=== PATIENT | female | born 1985 | race Caucasian/White ===

== ENCOUNTER 2016-12-02 15:37 | Outpatient (CLI) | payer BC ==
[~2016-12-02] VITALS: Ht 157.5 cm; Wt 478.5 kg
[~2016-12-02 15:37] MED LIST: PRENAT PO
[2016-12-02 15:46] VITALS: Ht 157.5 cm; Wt 478.5 kg
[2016-12-02 15:47] VITALS: BP 112/72; PULSE 78; RESP 19
--- NOTE | 2016-12-02 16:34 | RADRPT ---
PROCEDURE: Biophysical profile CLINICAL INDICATION: distress, vaginal spotting TECHNIQUE: Color and lowe-scale ultrasound images of an intrauterine gestation were obtained. COMPARISON: None FINDINGS: A single live intrauterine gestation is identified in cephalic position with an estimated hear t rate of 134 beats per minute. The placenta is located anteriorly. The cervix is obscured by head shadows. No evidence of abruption identified. MAIRA is 15.6 cm. movement 2/2. tone 2/2. breathing movement 2/2. Qualitative AFV 2/2 Total biophysical profile 03/29 IMPRESSION: 03/29 biophysical profile. RPTAT: AA .Mik Cooper MD, Date Time Electronically viewed and signed by .Mik Cooper MD, on 12/02/2016 16:34 .P/
--- NOTE | 2016-12-02 17:17 | CONS ---
Date/Time of Note Date/Time of Note DATE: 12/02/16 TIME: 17:06 Consultation Date/Type/Reason Admit Date/Time December 02, 2069 OB triage consult Reason for Consultation This patient is a 1 para 0 due date of January 17, 2017 which makes her 33 weeks and 2 days today She came to triage area complaining of vaginal discharge which was brownish and was concerned about the possible vaginal bleeding . In reviewing her history she did not have any surgery any other major medical problem in her past she is taking her vitamins and iron pills during this no history of allergy On examination her vital signs are normal blood pressure 112/72 pulse 78 respiration 19 and temperature 98.0 plus heart tones are 140s with fairly good variability no deceleration occasional acceleration On physical examination her ear nose throat appears to be normal neck is normal no neck vein distention no thyromegaly no lymph node enlargement anywhere in her body Chest is clear to auscultation and percussion Heart normal sinus rhythm no murmur Abdomen is soft fundus is firm baby appears to be in vertex presentation No CVA tenderness Extremity; no edema no varicosities knee-jerk reflex normal . Pelvic exam: Cervix is closed long and there is no evidence of vaginal bleeding On ultrasound study a single live intrauterine gestation identified with cephalic presentation heart rate of 134 placenta located anteriorly no evidence of abruptio , her MAIRA was 15.6 cm her biophysical profile was reported Constitutional: No chills, No diaphoresis, No disoriented, No febrile, No improved, No no complaints, No other, No poor po, No requiring IVF, No requiring O2 Eyes: No discharge, No no complaints, No other, No pain, No redness, No visual change ENT: No bleeding, No congestion, No discharge, No dysphagia, No no complaints, No other, No pain, No sore throat Respiratory: No cough, No no complaints, No other, No pain, No pleuritic pain, No shortness of breath, No sputum, No wheezing Cardiovascular: No chest pain, No edema, No lightheadedness, No no complaints, No orthopenea, No other, No palpitations, No paroxysmal nocturnal dyspnea Gastrointestinal: No blood, No constipation, No decreased appetite, No diarrhea , No flatus, No nausea, No no complaints, No other, No pain, No passing stool, No vomiting Genitourinary: other (Slight brown vaginal discharge no evidence of reading the cervix was long and closed as I mentioned), No bleeding, No discharge, No dysuria, No flank pain, No hematuria, No no complaints Musculoskeletal: No back pain, No bone/joint pain, No neck pain, No no complaints, No other, No restricted range of motion, No swelling Skin: No bruising, No erythema, No laceration, No no complaints, No other, No pruritis, No rash, No skin lesions Neurologic: other (Knee-jerk reflex were normal), No confusion, No dizziness, No focal-weakness, No headache, No no complaints , No seizure, No syncope Endocrine: No dry skin, No no complaints, No other, No polydypsia, No polyuria , No temp intolerance Additional Comments Disposition : with these positive finding patient was reassured and she will continue her care with her measurement specialist End of dictation Social History Smoking Status: Never smoker Exam/Review of Systems Vital Signs Vitals Vital Signs Date Time Temp Pulse Resp B/P Pulse Ox O2 Delivery O2 Flow Rate FiO2 12/02/16 15:47 98.8 78 19 112/72 Room Air RIC URRUTIA MD Dec 02, 2016 17:17
--- NOTE | 2016-12-02 17:17 | TRIAGE ---
OB Triage Datetime Report Generated by CPN: 12/02/2016 17:17 Datetime: 12/02/2016 17:15 Stage of : OB Triage Maternal Assessment Level of Consciousness: Fully Conscious DTR's/Clonus: DTRs 1+ Headache: Denies Breath Sounds, Left: Clear and Equal Breath Sounds, Right: Clear and Equal Nausea/Vomiting: Denies RUQ Epigastric Pain: Denies Labor Evaluation Frequency: NONE Monitor Mode: External Quality: Mild Resting Tone [place]: Relaxed Heart Rate FHR Baseline Rate: 140 Monitor Mode: External US Variability: Moderate 6-25 bpm Accelerations: 15X15 Decelerations: None Category: Category I Pain Assessment Pain Presence: None/Denies Pain Type: N/A Membrane Status: Intact Datetime: 12/02/2016 17:05 Vaginal Exam Dilatation (cms): 1.0 Effacement (%): 0 Station: 0 Exam By: RRAMILILIANA,RN Vaginal Bleeding: None Cervix, Consistency: Moderate Cervix, Position: Posterior Datetime: 12/02/2016 16:49 Stage of : OB Triage Maternal Assessment Level of Consciousness: Fully Conscious DTR's/Clonus: DTRs 1+ Headache: Denies Breath Sounds, Left: Clear and Equal Breath Sounds, Right: Clear and Equal Nausea/Vomiting: Denies RUQ Epigastric Pain: Denies Labor Evaluation Frequency: NONE Quality: Mild Resting Tone [place]: Relaxed Heart Rate FHR Baseline Rate: 140 Monitor Mode: External US Variability: Moderate 6-25 bpm Accelerations: 15X15 Decelerations: None Category: Category I Pain Assessment Pain Presence: None/Denies Pain Type: N/A Membrane Status: Intact Datetime: 12/02/2016 16:18 Maternal Assessment Level of Consciousness: Fully Conscious DTR's/Clonus: DTRs 1+ Headache: Denies Blurred Vision: No Respiratory Effort: Unlabored Breath Sounds, Left: Clear and Equal Breath Sounds, Right: Clear and Equal Nausea/Vomiting: Denies RUQ Epigastric Pain: Denies Facial Edema: None Labor Evaluation Frequency: NONE Quality: Mild Resting Tone [place]: Relaxed Heart Rate FHR Baseline Rate: 140 Monitor Mode: External US Variability: Moderate 6-25 bpm Accelerations: 15X15 Decelerations: None Category: Category I Pain Assessment Pain Presence: None/Denies Pain Type: N/A Membrane Status: Intact Datetime: 12/02/2016 16:00 Stage of : OB Triage Maternal Assessment Level of Consciousness: Fully Conscious DTR's/Clonus: DTRs 1+ Headache: Denies Breath Sounds, Left: Clear and Equal Breath Sounds, Right: Clear and Equal Nausea/Vomiting: Denies RUQ Epigastric Pain: Denies Labor Evaluation Frequency: NONE Quality: Mild Resting Tone [place]: Relaxed Heart Rate FHR Baseline Rate: 140 Monitor Mode: External US Variability: Moderate 6-25 bpm Accelerations: 15X15 Decelerations: None Pain Assessment Pain Presence: None/Denies Pain Type: N/A Membrane Status: Intact Datetime: 12/02/2016 15:50 EGA: 33.3 Datetime: 12/02/2016 15:45 Assessment Type: Admission Assessment Maternal Assessment Level of Consciousness: Fully Conscious DTR's/Clonus: DTRs 2+; No Clonus Headache: Denies Blurred Vision: No Respiratory Effort: Unlabored; Regular Rhythm; Equal Expansion Breath Sounds, Left: Clear and Equal Breath Sounds, Right: Clear and Equal Nausea/Vomiting: Denies RUQ Epigastric Pain: Denies Lower Extremities Edema: None Degree: None Upper Extremities Edema: None Degree: None Facial Edema: None Fall Risk Assessment History of Falling: (0) No Secondary Diagnosis: (0) No Ambulatory Aid: (0) Bedrest/Nurse Assist IV Therapy: (0) No Gait: (0) Normal/Bedrest/Immobile Mental Status: (0) Oriented to Own Ability Fall Score: 0 Fall Risk Score Definition: No Risk: No action required Datetime: 12/02/2016 15:30 Time of Arrival: 12/02/2016 15:30 Arrived By: Ambulatory Arrived From: Home Chief Complaint: PT CAME IN C/O SPOTTING DARK BLOOD X 1 TODAY, STATES + FM AND DENIES ANY OTHER UT OBLEM Movement: Present Contractions: Denies/Absent Rupture of Membranes: Denies Vaginal Bleeding: None Vaginal Discharge: Denies Recent Sexual Intercouse: Denies Abdominal Trauma: Not Applicable Patient Complaints: Other Additional Patient Complaints: NONE Time Provider Notified: 12/02/2016 15:45 Provider Notified: RENAN Initial Plan: NST AND BPP [facility] LOCATION
== END 2016-12-02 17:17 | disposition home or self-care (01) ==
LOC: OBT 15:37 → L-D 15:37 → OBT 17:17
DX: O26.892 Other specified pregnancy related conditions, second trimester (principal); N89.8 Other specified noninflammatory disorders of vagina; Z3A.33 33 weeks gestation of pregnancy
CPT/HCPCS: 76818; G0463

== ENCOUNTER 2016-12-08 16:08 | Outpatient (CLI) | payer BC ==
--- NOTE | 2016-12-08 17:01 | RADRPT ---
PROCEDURE: US OB biophysical profile. Ultrasound cervix CLINICAL INDICATION: decreased movements, vaginal spotting TECHNIQUE: Multiple sonographic images of the pelvis were obtained. The images were reviewed on a PACS workstation. In addition transvaginal images of the cervix were obtained. COMPARISON: 12/02/2016 FINDINGS: The cervix is closed and measures 2.9 cm in length. There is a single viable intrauterine gestation. Cardiac activity is present with 144 beats per min [place]. There is a vertex presentation. The placenta is anterior. There is no evidence of placental abruption. There is a slightly decreased amount of amniotic fluid with an MAIRA = 7.2 cm. Biophysical profile: movement 2/2 tone 2/2. breathing 2/2 MAIRA 2/2 Total 03/29 RPTAT: AA . IMPRESSION: Normal biophysical profile. Mild oligohydramnios. Cervix length measures 2.9 cm. . .Lon Jefferson MD, MD Date Time Electronically viewed and signed by .Lon Jefferson MD, MD on 12/08/2016 17:01 .S/
[2016-12-08 18:58] LABS: URINE BLOOD (Dip) POC 2+ (NEGATIVE)
--- NOTE | 2016-12-08 19:05 | TRIAGE ---
OB Triage Datetime Report Generated by CPN: 12/08/2016 19:05 Datetime: 12/08/2016 18:50 Stage of : OB Triage Maternal Assessment Level of Consciousness: Fully Conscious DTR's/Clonus: DTRs 1+ Headache: Denies Breath Sounds, Left: Clear and Equal Breath Sounds, Right: Clear and Equal Nausea/Vomiting: Denies RUQ Epigastric Pain: Denies Labor Evaluation Frequency: NONE Monitor Mode: External Resting Tone [place]: Relaxed Heart Rate FHR Baseline Rate: 130 Monitor Mode: External US Variability: Moderate 6-25 bpm Accelerations: 15X15 Decelerations: None Category: Category I Pain Assessment Pain Scale: 0 Pain Presence: None/Denies Pain Type: N/A Pain Goal: 3 Vaginal Exam Membrane Status: Intact Datetime: 12/08/2016 18:09 Stage of : OB Triage Datetime: 12/08/2016 18:03 Stage of : OB Triage Datetime: 12/08/2016 18:00 Stage of : OB Triage Maternal Assessment Level of Consciousness: Fully Conscious DTR's/Clonus: DTRs 1+ Headache: Denies Breath Sounds, Left: Clear and Equal Breath Sounds, Right: Clear and Equal Nausea/Vomiting: Denies RUQ Epigastric Pain: Denies Labor Evaluation Frequency: NONE Monitor Mode: External Resting Tone [place]: Relaxed Heart Rate FHR Baseline Rate: 130 Monitor Mode: External US Variability: Moderate 6-25 bpm Accelerations: 15X15 Decelerations: None Category: Category I Pain Assessment Pain Scale: 0 Pain Presence: None/Denies Pain Type: N/A Pain Goal: 3 Vaginal Exam Membrane Status: Intact Datetime: 12/08/2016 17:40 Stage of : OB Triage Maternal Assessment Level of Consciousness: Fully Conscious DTR's/Clonus: DTRs 1+ Headache: Denies Breath Sounds, Left: Clear and Equal Breath Sounds, Right: Clear and Equal Nausea/Vomiting: Denies RUQ Epigastric Pain: Denies Labor Evaluation Frequency: NONE Monitor Mode: External Resting Tone [place]: Relaxed Heart Rate FHR Baseline Rate: 130 Monitor Mode: External US Variability: Moderate 6-25 bpm Accelerations: 15X15 Decelerations: None Category: Category I Pain Assessment Pain Scale: 0 Pain Presence: None/Denies Pain Type: N/A Pain Goal: 3 Vaginal Exam Membrane Status: Intact Datetime: 12/08/2016 16:39 Maternal Assessment Level of Consciousness: Fully Conscious DTR's/Clonus: DTRs 1+ Headache: Denies Blurred Vision: No Respiratory Effort: Unlabored Breath Sounds, Left: Clear and Equal Breath Sounds, Right: Clear and Equal Nausea/Vomiting: Denies RUQ Epigastric Pain: Denies Facial Edema: None Labor Evaluation Frequency: NONE Monitor Mode: External Resting Tone [place]: Relaxed Heart Rate FHR Baseline Rate: 130 Monitor Mode: External US Variability: Moderate 6-25 bpm Accelerations: 15X15 Decelerations: None Category: Category I Pain Assessment Pain Scale: 0 Pain Presence: None/Denies Pain Type: N/A Pain Goal: 3 Vaginal Exam Membrane Status: Intact Datetime: 12/08/2016 16:13 Assessment Type: Triage Maternal Assessment Level of Consciousness: Fully Conscious DTR's/Clonus: DTRs 2+; No Clonus Headache: Denies Blurred Vision: No Respiratory Effort: Unlabored; Regular Rhythm; Equal Expansion Breath Sounds, Left: Clear and Equal Breath Sounds, Right: Clear and Equal Nausea/Vomiting: Denies RUQ Epigastric Pain: Denies Lower Extremities Edema: None Degree: None Upper Extremities Edema: None Degree: None Facial Edema: None Fall Risk Assessment History of Falling: (0) No Secondary Diagnosis: (0) No Ambulatory Aid: (0) Bedrest/Nurse Assist IV Therapy: (0) No Gait: (0) Normal/Bedrest/Immobile Mental Status: (0) Oriented to Own Ability Fall Score: 0 Fall Risk Score Definition: No Risk: No action required Datetime: 12/08/2016 16:05 Time of Arrival: 12/08/2016 16:05 EGA: 34.2 Arrived By: Wheelchair Arrived From: Home Chief Complaint: PT CAME IN C/O SPOTTING SINCE THIS MORNING. DENIES ANY COMPLICATION AT THIS TIME AND STATES HAVING MOVEMENT Movement: Present Contractions: Denies/Absent Rupture of Membranes: Denies Vaginal Discharge: Denies Recent Sexual Intercouse: Denies Abdominal Trauma: Not Applicable Patient Complaints: Other Additional Patient Complaints: NONE Time Provider Notified: 12/08/2016 19:00 Provider Notified: KATE Initial Plan: NST AND BPP [facility] LOCATION, CX LENGHT Datetime: 12/02/2016 15:50 EGA: 33.3 Datetime: 12/02/2016 15:45 Fall Score: 0 Fall Risk Score Definition: No Risk: No action required
--- NOTE | 2016-12-08 22:26 | QN ---
Documentation Comment 31-year-old with IUP at 34 weeks and 2 days presented with complaint of spotting. She denies any contractions, leaking of fluid, vaginal bleeding. She presented last week as well with spotting that resolved. She is O+. She denies any complications during her course. 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 Patient currently beside spotting that currently resolved denies any other complaints. Physical examination: General appearance: Alert and oriented 4 patient does not appear to be in any acute distress. Abdomen: Soft, gravid, nontender, fundal height consistent with gestational age No spotting or bleeding noted during observation. Transvaginal cervical length 2.9 cm BPP: 03/29 MAIRA: 7 PROCEDURE: US OB biophysical profile. Ultrasound cervix CLINICAL INDICATION: decreased movements, vaginal spotting TECHNIQUE: Multiple sonographic images of the pelvis were obtained. The images were reviewed on a PACS workstation. In addition transvaginal images of the cervix were obtained. COMPARISON: 12/02/2016 FINDINGS: The cervix is closed and measures 2.9 cm in length. There is a single viable intrauterine gestation. Cardiac activity is present with 144 beats per minute. There is a vertex presentation. The placenta is anterior. There is no evidence of placental abruption. There is a slightly decreased amount of amniotic fluid with an MAIRA = 7.2 cm. Biophysical profile: movement 2/2 tone 2/2. breathing 2/2 MAIRA 2/2 Total 03/29 RPTAT: AA . IMPRESSION: Normal biophysical profile. Mild oligohydramnios. Cervix length measures 2.9 cm. . Assessment: IUP at 34 weeks and 2 days Spotting, O + positive, resolved. During observation no contraction seen on the monitor. Patient denies any symptom. Cervical length: 2.9 MAIRA: 7 Patient will be discharged home with strict labor precaution, bedrest and pelvic rest with a follow-up in 48 hours again in triage for repeat cervical length as well as MAIRA after adequate p.o. hydration She was given strict labor precaution and kick count. She was advised to return immediately to the hospital if she feels any cramps, leaking of fluid, bleeding or any other concern. Patient sounds understanding and desire to comply. Follow-up next week with her OB clinic advised STORM LOVE MD Dec 08, 2016 22:26
== END 2016-12-08 19:00 | disposition home or self-care (01) ==
LOC: OBT 16:08 → L-D 16:09 → OBT 19:00
PROVIDERS: ATTEND Obstetrics & Gynecology Obstetrics
DX: O26.853 Spotting complicating pregnancy, third trimester (principal); O36.8130 Decreased fetal movements, third trimester, not applicable or unspecified; Z3A.34 34 weeks gestation of pregnancy
CPT/HCPCS: 76817; 76818; 81003; 86850; 86900; 86901; G0463

== ENCOUNTER 2017-12-07 22:46 | Emergency (ER) | END 2017-12-07 23:55 | disposition left against medical advice (07) ==

== ENCOUNTER 2017-12-08 10:19 | Emergency (ER) | END 2017-12-08 15:34 | disposition home or self-care (01) ==

== ENCOUNTER 2018-04-25 08:36 | Emergency (ER) | END 2018-04-25 09:46 | disposition home or self-care (01) ==

== ENCOUNTER 2018-08-20 23:31 | Emergency (ER) | payer BC ==
[~2018-08-20] VITALS: Ht 157.5 cm; Wt 81.5 kg
[~2018-08-20 23:31] MED LIST changes: +ACET500C5 PO; +HYDR-4011 PO; +IBUP800T48 PO; +NAPR-985 PO; +ONDA4TAB8 PO; +SULF1TAB31 PO
[2018-08-20 23:33] VITALS: BP 123/80; PULSE 77; RESP 18; Ht 157.5 cm; Wt 81.5 kg
[2018-08-21] MEDS ORDERED: KETOROLAC 30 MG INJ IM STA (00:01)
[2018-08-21] MEDS ORDERED: NAPR-688 PO (00:27)
--- NOTE | 2018-08-21 01:49 | ERD ---
ER Documentation Chief Complaint Chief Complaint right upper arm pain x 2 months, denies trauma HPI 33-year female presents for right upper arm pain times 2 months. She states that she was here in the ER about a month ago and an x-ray which showed tendinitis. She is here for the same symptoms. 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 She was given Naprosyn in the ER a month ago which helps with her symptoms. She states that she currently has 10 out of 10 pain. The pain is described as sharp. Denies any fevers or chills. No chest pain or shortness of breath noted. ROS All systems reviewed and are negative except as per history of present illness. Medications Home Meds Active Scripts Naproxen* (Naproxen*) 500 Mg Tablet, 500 MG PO BID PRN for PAIN, #30 TAB Prov:MATT RODRIGUEZ DO 08/21/18 Hydrocodone/Acetaminophen (Sullivan 5-325 Tablet) 1 Each Tablet, 1 TAB PO Q6H PRN for PAIN, #7 TAB Prov:SUGAR CH PA-C 04/25/18 Naproxen* (Naprosyn*) 500 Mg Tablet, 500 MG PO BID PRN for PAIN AND/OR INFLAMMATION, #30 TAB Prov:SUGAR CH PA-C 04/25/18 Acetaminophen* (Tylophen*) 500 Mg Capsule, 1 CAP PO Q6H PRN for PAIN AND OR ELEVATED TEMP, #20 CAP Prov:MARIIA FINLEY 12/08/17 Ondansetron Hcl* (Zofran*) 4 Mg Tablet, 4 MG PO Q8H PRN for NAUSEA AND/OR VOMITING, #30 TAB Prov:MARIIA FINLEY 12/08/17 Ibuprofen* (Motrin*) 800 Mg Tab, 800 MG PO Q6H PRN for PAIN AND OR ELEVATED TEMP, #30 TAB Prov:MARIIA FINLEY 12/08/17 Sulfamethoxazole/Trimethoprim* (Bactrim Ds* Tablet) 1 Each Tablet, 1 TAB PO BID for 7 Days, #14 TAB Prov:MARIIA FINLEY 12/08/17 Reported Medications Multivit/Min/Fol Ac/Iron/Pren* ( S*) 1 Tab Tab, 1 TAB PO DAILY, TAB 05/24/16 Allergies Allergies: Coded Allergies: No Known Allergy (Unverified , 08/20/18) PMhx/Soc Medical and Surgical Hx: pt denies Medical Hx History of Surgery: Yes () Anesthesia Reaction: No Hx Neurological Disorder: No Hx Respiratory Disorders: No Hx Cardiac Disorders: No Hx Psychiatric Problems: No Hx Miscellaneous Medical Probl: No Hx Alcohol Use: No Hx Substance Use: No Hx Tobacco Use: No Smoking Status: Never smoker Physical Exam Vitals Vital Signs Date Temp Pulse Resp B/P (MAP) Pulse Ox O2 O2 Flow FiO2 Time Delivery Rate 08/20/18 97.9 77 18 123/80 98 23:33 (94) Physical Exam Const: No acute distress Resp: Clear to auscultation bilaterally Cardio: Regular rate and rhythm, no murmurs. right radial pulse intact Abd: Soft, non tender, non distended. Normal bowel sounds Skin: No petechiae or rashes Back: No midline or flank tenderness Ext: right upper area tenderness to palpation over the biceps muscle, no right shoulder or elbow joint tenderness Neur: Awake and alert. Right upper extremity sensation intact Psych: Normal Mood and Affect Results 24 hrs Laboratory Tests Test 08/21/18 00:11 POC Beta HCG, Qualitative NEGATIVE Current Medications Medications Dose Sig/Scarlett Start Time Status Last (Trade) Ordered Route PRN Stop Time Admin Dose Reason Admin Ketorolac 30 mg ONCE STAT 08/21/18 DC 08/21/18 Tromethamine IM 00:01 00:17 (Toradol) 08/21/18 00:02 Procedures/MDM Medical Decision Making: Differential diagnosis includes but not limited to tendinitis, muscle strain, muscle tear. Patient appeared well on physical examination. There was tenderness to palpation over the right bicep muscle. Review of records show that the patient had an x-ray done a month ago when she was here in the ER which showed tendinitis. Given that the current pain is similar to the one she had a month ago patient likely has an exacerbation of the tendinitis. Patient was given Toradol in the ER with relief of symptoms. Patient given prescription for Naprosyn. She is also advised to take [id number] Tylenol. Patient advised to use warm or cool compresses. She is advised that she may need physical therapy which she can get a referral from her primary care physician. Patient advised to follow up with PCP in 1-2 days. Patient advised to return to ED for new or worsening symptoms. Patient stable on discharge from the ED. Disclaimer: Inadvertent spelling and grammatical errors are likely due to EHR/dictation software use and do not reflect on the overall quality of patient care. Also, please note that the electronic time recorded on this note does not necessarily reflect the actual time of the patient encounter. Departure Diagnosis: Primary Impression: Tendonitis Condition: Fair Patient Instructions: Tendonitis Referrals: [facility] YOU HAVE RECEIVED A MEDICAL SCREENING EXAM AND THE RESULTS INDICATE THAT YOU DO NOT HAVE A CONDITION THAT REQUIRES URGENT TREATMENT IN THE EMERGENCY DEPARTMENT. FURTHER EVALUATION AND TREATMENT OF YOUR CONDITION CAN WAIT UNTIL YOU ARE SEEN IN YOUR DOCTORS OFFICE WITHIN THE NEXT 1-2 DAYS. IT IS YOUR RESPONSIBILITY TO MAKE AN APPOINTMENT FOR FOLOW-UP CARE. IF YOU HAVE A PRIMARY DOCTOR --you should call your primary doctor and schedule an appointment IF YOU DO NOT HAVE A PRIMARY DOCTOR YOU CAN CALL OUR PHYSICIAN REFERRAL HOTLINE AT IF YOU CAN NOT AFFORD TO SEE A PHYSICIAN YOU CAN CHOSE FROM THE FOLLOWING CO [facility] [id number] [facility]. [facility] [address] [facility] [facility] [address] [facility] [facility] [address] [facility]. [facility] [address] [facility]. [facility]. [address] Additional Instructions: Llame al doctor MAANA y urth david RADHA PARA DENTRO DE 1-2 SADLER.Dgale a la secretaria que nosotros le instruimos hacer esta radha.Avise o llame si chris condicin se empeora antes de la radha. Regresa aqui si peor o no mejor. MATT RODRIGUEZ DO Aug 21, 2018 01:49
== END 2018-08-21 00:41 | disposition home or self-care (01) ==
LOC: FTE 23:31
DX: M77.9 Enthesopathy, unspecified (principal)
CPT/HCPCS: 81025; 96372; 99284; J1885

== ENCOUNTER 2018-10-27 07:37 | Emergency (ER) | payer BC ==
[~2018-10-27] VITALS: Wt 71.0 kg
[~2018-10-27 07:37] MED LIST changes: +NAPR-688 PO
--- NOTE | 2018-10-27 09:22 | ERD ---
ER Documentation Chief Complaint Chief Complaint VOMITING SINCE LAST NIGHT WITH BACK PAIN HPI 33-year-old female, previously healthy, presents to the emergency department, complaining of acute onset of nausea, and vomiting x3 since last night, associated with intense dull epigastric pain radiating to the back, 05/01, associated with chills and general malaise. The patient denies history of previous episodes, no history of abdominal surgeries. ROS All systems reviewed and are negative except as per history of present illness. Medications Home Meds Active Scripts Naproxen* (Naproxen*) 500 Mg Tablet, 500 MG PO BID PRN for PAIN, #30 TAB Prov:MATT RODRIGUEZ DO 08/21/18 Hydrocodone/Acetaminophen ([place] 5-325 Tablet) 1 Each Tablet, 1 TAB PO Q6H PRN for PAIN, #7 TAB Prov:SUGAR CH PA-C 04/25/18 Naproxen* (Naprosyn*) 500 Mg Tablet, 500 MG PO BID PRN for PAIN AND/OR INFLAMMATION, #30 TAB Prov:SUGAR CH PA-C 04/25/18 Acetaminophen* (Tylophen*) 500 Mg Capsule, 1 CAP PO Q6H PRN for PAIN AND OR ELEVATED TEMP, #20 CAP Prov:MARIIA FINLEY 12/08/17 Ondansetron Hcl* (Zofran*) 4 Mg Tablet, 4 MG PO Q8H PRN for NAUSEA AND/OR VOMITING, #30 TAB Prov:MARIIA FINLEY 12/08/17 Ibuprofen* (Motrin*) 800 Mg Tab, 800 MG PO Q6H PRN for PAIN AND OR ELEVATED TEMP, #30 TAB Prov:MARIIA FINLEY 12/08/17 Sulfamethoxazole/Trimethoprim* (Bactrim Ds* Tablet) 1 Each Tablet, 1 TAB PO BID for 7 Days, #14 TAB Prov:MARIIA FINLEY 12/08/17 Reported Medications Multivit/Min/Fol Ac/Iron/Pren* ( S*) 1 Tab Tab, 1 TAB PO DAILY, TAB 05/24/16 Allergies Allergies: Coded Allergies: No Known Allergy (Unverified , 08/20/18) PMhx/Soc History of Surgery: Yes () Anesthesia Reaction: No Hx Neurological Disorder: No Hx Respiratory Disorders: No Hx Cardiac Disorders: No Hx Psychiatric Problems: No Hx Miscellaneous Medical Probl: No Hx Alcohol Use: No Hx Substance Use: No Hx Tobacco Use: No Smoking Status: Never smoker FmHx Family History: No diabetes, No coronary disease Physical Exam Vitals Vital Signs Date Temp Pulse Resp B/P (MAP) Pulse Ox O2 O2 Flow FiO2 Time Delivery Rate 10/27/18 98.9 90 18 115/71 99 07:40 (86) Physical Exam Patient alert, in distress due to pain, oriented, vital signs stable. HEENT: Normocephalic, atraumatic. EYES: PERRLA, EOMI, Sclera and conjunctiva appear normal. EARS: Canals clear, tympanic membranes WNL. THROAT: Normal oropharynx. NECK: Supple, No lymphadenopathy. Full ROM without pain or tenderness. HEART: RRR, no rubs, murmurs, clicks or gallops. LUNGS: Clear to auscultation. ABDOMEN: Guarded, tender to palpation in the epigastric area,? Turner sign, without masses or hepatosplenomegaly. EXTREMITIES: No edema bilaterally. BACK: Full ROM, no deformity, normal back exam NEURO: Cranial nerves grossly intact, no motor or sensory deficit Result Diagram: 10/27/18 0950 10/27/18 0950 Results 24 hrs Laboratory Tests Test 10/27/18 09:27 10/27/18 09:44 10/27/18 09:50 Urine Color YELLOW Urine Clarity SLIGHTLY CLOUDY Urine pH 6.0 Urine Specific [place] 1.026 Urine Ketones TRACE mg/dL Urine Nitrite NEGATIVE mg/dL Urine Bilirubin NEGATIVE mg/dL Urine Urobilinogen NEGATIVE mg/dL Urine Leukocyte Esterase 3+ Ranjeet/ul Urine Microscopic RBC 29 /HPF Urine Microscopic WBC 31 /HPF Urine Squamous Epithelial Cells FEW /HPF Urine Bacteria FEW /HPF Urine Mucus FEW /HPF Urine Hemoglobin 2+ mg/dL Urine Glucose 1+ mg/dL Urine Total Protein NEGATIVE mg/dl POC Beta HCG, Qualitative NEGATIVE White Blood Count 13.8 10^3/ul Red Blood Count 4.73 10^6/ul Hemoglobin 14.0 g/dl Hematocrit 42.0 % Mean Corpuscular Volume 88.8 fl Mean Corpuscular Hemoglobin 29.6 pg Mean Corpuscular 33.3 g/dl Hemoglobin Concent Red Cell Distribution Width 11.8 % Platelet Count 262 10^3/UL Mean Platelet Volume 10.2 fl Immature Granulocytes % 0.400 % Neutrophils % 89.2 % Lymphocytes % 7.3 % Monocytes % 2.9 % Eosinophils % 0.0 % Basophils % 0.2 % Nucleated Red Blood Cells % 0.0 /100WBC Immature Granulocytes # 0.060 10^3/ul Neutrophils # 12.3 10^3/ul Lymphocytes # 1.0 10^3/ul Monocytes # 0.4 10^3/ul Eosinophils # 0.0 10^3/ul Basophils # 0.0 10^3/ul Nucleated Red Blood Cells # 0.0 10^3/ul Sodium Level 141 mmol/L Potassium Level 4.0 mmol/L Chloride Level 100 mmol/L Carbon Dioxide Level 28 mmol/L Anion Gap 13 Blood Urea Nitrogen 9 mg/dl Creatinine 0.46 mg/dl Est Glomerular Filtrat > 60 mL/min Rate mL/min Glucose Level 152 mg/dl Calcium Level 9.3 mg/dl Total Bilirubin 0.3 mg/dl Direct Bilirubin 0.00 mg/dl Indirect Bilirubin 0.3 mg/dl Aspartate Amino Transf (AST/SGOT) 31 IU/L Alanine 33 IU/L Aminotransferase (ALT/SGPT) Alkaline Phosphatase 127 IU/L Total Protein 8.8 g/dl Albumin 4.6 g/dl Globulin 4.20 g/dl Albumin/Globulin Ratio 1.09 Lipase 99 U/L Current Medications Medications Dose Sig/Scarlett Start Time Status Last (Trade) Ordered Route PRN Stop Time Admin Dose Reason Admin Lactated 1,000 ml @ Q1H STAT 10/27/18 DC 10/27/18 Ringer's 1,000 mls/hr IV 09:26 10/27/18 09:54 10:25 Morphine 2 mg ONCE STAT 10/27/18 DC 10/27/18 Sulfate IV 09:26 10/27/18 09:53 (morphine) 09:29 Ondansetron 4 mg ONCE STAT 10/27/18 DC 10/27/18 HCl (Zofran IV 09:26 10/27/18 09:53 Inj) 09:29 Famotidine 20 mg ONCE STAT 10/27/18 DC 10/27/18 (Pepcid Iv) IV 09:26 10/27/18 09:53 09:29 Ceftriaxone 50 ml @ ONCE ONCE 10/27/18 DC 10/27/18 Sodium 100 mls/hr IVPB 10:30 10/27/18 10:23 10:59 Ketorolac 30 mg ONCE STAT 10/27/18 DC 10/27/18 Tromethamine IV 10:58 10/27/18 11:08 (Toradol) 10:59 Procedures/MDM Vital signs stable. Differential diagnosis include but not limited to: UTI, colitis, gastroenteritis, kidney stones, irritable bowel syndrome, inflammatory bowel syndrome, malabsorption syndrome, cholelithiasis, food intolerance, medication side effect, pancreatitis, diverticulitis, bowel obstruction. Physical examination and clinical presentation consistent most likely with UTI. During the ED course the patient remained stable, no new complaints. The patient received treatment with IV fluids and IV medications presenting overall impro vement of the symptoms. Results and clinical impression discussed with the patient who agrees with m anagement. The patient is stable to be treated outpatient and will be discharged home; some side effects of prescribed medications (headache, rash, nausea, vomiting, diarrhea, drowsiness, habituation, bleeding, hypertension, interactions with other medications) were reviewed. Follow up with the primary care provider in the next 48h is recommended. If symptoms persist, worsen or new symptoms develop, then patient should return to the ED immediately. Instructions explained and given directly by me to the patient with acknowledgment and demonstrated understanding. Disclaimer: Inadvertent spelling and grammatical errors are likely due to EHR/dictation software use and do not reflect on the overall quality of patient care. Also, please note that the electronic time recorded on this note does not necessarily reflect the actual time of the patient encounter. Departure Diagnosis: Primary Impression: UTI (urinary tract infection) Condition: Stable Patient Instructions: Understanding Urinary Tract Infections (UTIs) Additional Instructions: Muchas gina por [facility] para chris servicio. Esperamos que en chris visita a la marion de emergencia chris problema medico haya sido solucionado y que se sienta mucho mejor. Para estar seguros que chris mejoria sigue en proceso, le pedimos el favor de hacer david adriana de seguimiento medico con chris doctor primario en los proximos 2-4 villavicencio. Lleve con usted estos documentos y las medicinas recetadas. Si gio sintomas empeoran, NO SE ESPERE, por favor regrese a marion de emergencia INMEDIATAMENTE. En toribio que usted no tenga un mdico de atencin primaria: Llame al mdico o clnica comunitaria de referencia que aparece abajo andres las horas de consultorio para hacer david adriana para que le vean. CLINICAS: [facility] [phone] [id number] [facility] [phone] [id number] [facility] [id number] [facility] [phone] [facility] [phone] [id number] [facility]. [phone] RAFAL MONACO MD Oct 27, 2018 09:22
[2018-10-27] MEDS ORDERED: FAMOTIDINE 20 MG INJ IV STA (09:26)
[2018-10-27] MEDS ORDERED: morphine 2 MG INJ IV STA (09:26)
[2018-10-27] MEDS ORDERED: ONDANSETRON 4 MG INJ IV STA (09:26)
[2018-10-27] MEDS ORDERED: LACTATED RINGER'S 1,000 ML IV STA (09:26)
[2018-10-27] MEDS ORDERED: CEFTRIAXONE 1 GM/50 ML (PMX) 50 ML IVPB ONE (10:30)
[2018-10-27] MEDS ORDERED: KETOROLAC 30 MG INJ IV STA (10:58)
[2018-10-27] MEDS ORDERED: CIPR-193 PO (11:22)
[2018-10-27] MEDS ORDERED: HYDR-4011 PO (11:22)
[2018-10-27 11:48] VITALS: BP 120/81; PULSE 88; RESP 19
== END 2018-10-27 11:50 | disposition home or self-care (01) ==
LOC: FTE 07:37
DX: N39.0 Urinary tract infection, site not specified (principal)
CPT/HCPCS: 36415; 74176; 76705; 80053; 81001; 81025; 83690; 85025; 87086; 96374; 96375; 99285; J0696; J1885; J2270; J2405; J7120